=== PATIENT | female | born 2000 | race Caucasian/White ===

== ENCOUNTER 2021-11-24 11:30 | Emergency (ER) | payer BC ==
[2021-11-24 11:37] VITALS: BP 119/77; PULSE 108; TEMP 99.1; BMI 22.8
[2021-11-24] MEDS ORDERED: ACETAMINOPHEN 500 MG TABLET (FP) PO ONE (12:01)
== END 2021-11-24 12:50 | disposition home or self-care (01) ==
LOC: JER 11:30
DX: U07.1 COVID-19 (principal); R05.1 Acute cough; J02.9 Acute pharyngitis, unspecified
CPT/HCPCS: 99283-25